=== PATIENT | female | born 1940 | race Caucasian/White ===

== ENCOUNTER → 2016-09-26 | Outpatient (CLI) | payer MEDICARE, OTHER ==
[~2016-09-26] MED LIST: AMBIEN10 MG PO; COLACE100 MG PO; CORDARONE,PACE200 MG PO; COREG 3.1253.125 MG PO; CYMBALTA60 MG PO; DITROPAN XL10 MG PO; DURAGESIC 25MC25 MCG TOP; DURAGESIC 75MC75 MCG TOP; ELIQUIS2.5 MG PO; FERROUS SULFAT325 MG PO; FERROUSUL325 MG PO; GLUCAGON 1 MG PE1 MG SUB-Q; GLUCOPHAGE1000 MG PO; GLUCOPHAGE500 MG PO; HUMALOG100 UNIT/1 SUB-Q; HYDRALAZINE HC100 MG PO; LANTUS (IN100 UNIT/M SUB-Q; LASIX20 MG PO; LEVOTHROID (SY50 MCG PO; LEVOTHROID(SYN75 MCG PO; LIPITOR10 MG PO; LIPITOR20 M1 PO; LISINOPRIL-HCT1 EAC2 PO; LOTENSIN10 MG PO; MIRALAX17 GM PO; NEXIUM40 MG PO; NORCO 7.5-3251 EACH PO; NORVASC10 MG PO; NORVASC5 MG PO; OXYGEN M-15 INH; PAIN PUMP; PERCOCET 5-3251 EACH PO; PREPARATION H C51 G1 R; PROTONIX40 MG PO; SINGULAIR10 MG PO; TYLENOL325 MG PO; VITAMIN B-650 MG PO; WELLBUTRIN XL300 M1 PO; ZOFRAN4 MG PO
== END | disposition disaster alternative care site (69) ==
LOC: LFPA 16:24
DX: R60.0 Localized edema (principal)

== ENCOUNTER → 2017-02-20 | Outpatient (CLI) | payer MEDICARE, OTHER | END | disposition disaster alternative care site (69) | LOC: GRAD 15:17 | DX: M54.16 Radiculopathy, lumbar region (principal); Z53.8 Procedure and treatment not carried out for other reasons ==

== ENCOUNTER 2017-02-25 11:17 | Day surgery (SDC) | payer MEDICARE, OTHER ==
[~2017-02-25] VITALS: Ht 162.6 cm; Wt 110.9 kg
--- NOTE | ~2017-02-25 | OR ---
PATIENT'S NAME: ANDRE POTTS [facility] AGE: 76 Y [address] ROOM: [address] [address] LOCATION: [facility] ADMIT DATE: 02/25/2017 OR/Procedure Report DISCHARGE DATE: FAMILY PHYSICIAN: Thomas Grimes MD ATTENDING PHYSICIAN: Rodolfo Nolan SURGEON: Rodolfo Nolan MD SKEIN DRIER: DATE OF PROCEDURE: 02/25/2017 PREOPERATIVE DIAGNOSIS: L4 compression fracture. POSTOPERATIVE DIAGNOSIS: L4 compression fracture. PROCEDURE: Kyphoplasty of the L4 vertebrae. DESCRIPTION OF PROCEDURE: The patient was taken operating room, placed in a prone position with pressure points padded. The left arm was placed down next to the body. The right arm was abducted with a 90 degree flexed at the elbow with an arm board. Sterile prep and drape were performed in usual fashion. I utilized two C-arms, so I had an AP and lateral view at the same time. General endotracheal anesthesia was used and was induced prior to position. Under fluoroscopic guidance, I then identified the L4 vertebrae in an AP and lateral view. I anesthetized skin lateral to the left L4 pedicle using 1% lidocaine with epinephrine. I anesthetized skin all the way down to the periosteum of the left pedicle. I then made a skin incision with an 11 blade. I inserted a Jose trocar and directed the tip to make contact with the lateral aspect of the pedicle using a small mallet advanced the trocar through the pedicle towards the medial wall of the pedicle where I made contact with the posterior aspect of the vertebral body. I directed the trocar anteriorly into the vertebral body. Then using a bone drill, I created a further cavity for my balloon. I then went to the patient's right side and again anesthetized skin and subcutaneous tissue all the way down to the lateral aspect of the right pedicle and made an 11 blade and inserted the [place] trocar again making contact with the lateral aspect of the pedicle. I directed the trocar into the pedicle moving from the lateral aspect to the medial aspect making contact with the posterior aspect of the vertebral body and directing it towards the midline. I again used a bone drill to create a cavity for balloon. I then inserted a Jose balloon and inflated it with approximately 4 mL of Isovue contrast obtaining a good cavity for cement. I did this on the left side as well. I then filled both cavities with quick setting bone cement. I removed both trocars and closed the incisions with skin glue and we waited approximately 10 minutes so the cement hardened. Then, the patient was transferred to a cart. She was extubated and taken to Recovery in good condition. She will be kept overnight for 24-hour observation. Hospitalist was consulted. PATIENT'S NAME: ANDRE POTTS [facility] AGE: 76 Y [address] ROOM: [address] [address] LOCATION: [facility] ADMIT DATE: 02/25/2017 OR/Procedure Report DISCHARGE DATE: FAMILY PHYSICIAN: Thomas Grimes MD ATTENDING PHYSICIAN: Rodolfo Nolan RODOLFO NOLAN MD BM/modl /[id number] d: 02/25/17 1923 t: 03/22/17 1510, OPERATIVE SUMMARY
--- NOTE | 2017-02-25 12:28 | NUR ---
2 IV ATTEMPTS MADE PER WESLEYRN
[2017-02-25 12:55] LABS: ALBUMIN 3.3 gm/dL (3.5-5.0); ANION GAP 13.1 (10.0-19.0); CALCIUM 9.1 mg/dL (8.5-10.5); CREATININE 1.5 mg/dL (0.5-1.1); POTASSIUM 4.1 mMol/L (3.7-5.1); TOTAL BILIRUBIN 0.5 mg/dL (0.0-1.5); TOTAL PROTEIN 6.7 g/dL (6.0-8.4)
--- NOTE | 2017-02-26 03:37 | NUR ---
Significant Event: PATIENT ALERT AND ORIENTED X 3. VSS. TAKING PO AND VOIDING WITHOUT DIFFICULTY. REFUSED TO GET UP THIS SHIFT -VOIDS PER BEDPAN. PAIN WELL CONTROLLED WITH PERCOCET LAST AT 0500. CSM'S TO LOWER EXT. WNL. HAS 2 PUNCTURE SITES TO BACK THAT HAVE BEEN SURGICALLY GLUED - INTACT. IV CAN BE SL'D WHEN THIS BAG OF FLUID IS COMPLETE. PLEASANT AND COOPERTIVE WITH CARES. PLANS DISCHARGE TODAY. Follow up:
[2017-02-26 05:49] LABS: ANION GAP 12.4 (10.0-19.0); CALCIUM 8.3 mg/dL (8.5-10.5); CREATININE 1.7 mg/dL (0.5-1.1); POTASSIUM 4.4 mMol/L (3.7-5.1)
--- NOTE | 2017-02-26 09:10 | NUR ---
Iris Loomis from [facility] called to see when patient would be returning. I let her know it looked to be today but I don't have any specifics. [phone] Called Iris back, made plans for a 1100 pickup. 934 Updated Azra Charge and Yamini Hilliard. Yamini will let Dr. Piña know but 1100 might be too soon. 0950 Called Iris and changed time to 1230. Wheelchair here and bring oxygen. 1055 Faxed orders. 1115 Introduced self/role to patient. She has called her family about her discharge already. Added my name to her marker board.
--- NOTE | 2017-02-26 11:52 | NUR ---
PATIAENT TO TRANSFER TO [facility]. UP TO BS AND WHEELCHAIR WITH 2 ASSIST, ENCOURAGED TO USE WALKER. PAIN IMPROVED SINCE YESTERDAY IN BACK. PERCOCET 2 TABS AT 1100. 2 SMALL PUNCTURES SITES FROM KYPHOPLASTY GLUED AND INTACT. O2 ON ROOM AIR IS 92%.
--- NOTE | 2017-02-26 14:14 | NUR ---
patient doing well. up to w/c with 2 assist. minimal pain. percocet two tabs at 1100. transferred to halfway at 1230 in w/c and ssds mk 2 advanced operator. belongings sent with patient.
== END 2017-02-26 12:30 ==
LOC: G3N 11:17 → GSDC 11:17 → G3N 18:05 → GSDC 02-26 12:30
PROVIDERS: Anesthesiology Pain Medicine; Nurse Anesthetist, Certified Registered
PROC: 0QS03ZZ Reposition Lumbar Vertebra, Percutaneous Approach (ICD-10-PCS; principal; 2017-02-25)
PROC: 0QU03JZ Supplement Lumbar Vertebra with Synthetic Substitute, Percutaneous Approach (ICD-10-PCS; 2017-02-25)
DX: M80.08XA Age-related osteoporosis with current pathological fracture, vertebra(e), initial encounter for fracture (principal); I48.91 Unspecified atrial fibrillation; E78.00 Pure hypercholesterolemia, unspecified; K21.9 Gastro-esophageal reflux disease without esophagitis; F32.9 Major depressive disorder, single episode, unspecified; F41.9 Anxiety disorder, unspecified; N17.9 Acute kidney failure, unspecified; E66.01 Morbid (severe) obesity due to excess calories; E11.9 Type 2 diabetes mellitus without complications; E03.9 Hypothyroidism, unspecified; G47.33 Obstructive sleep apnea (adult) (pediatric); Z98.49 Cataract extraction status, unspecified eye; Z98.890 Other specified postprocedural states; Z87.442 Personal history of urinary calculi; Z79.891 Long term (current) use of opiate analgesic; Z68.42 Body mass index [BMI] 45.0-49.9, adult; Z79.899 Other long term (current) drug therapy
CPT/HCPCS: C1713; J0690; J2001; J3010; J7030